=== PATIENT | male | born 1955 | race Hispanic/Latino ===

== ENCOUNTER 2021-06-26 05:37 | Emergency (ER) | payer OTHER, MEDICARE ==
[2021-06-26 06:10] VITALS: BP 126/85
--- NOTE | 2021-06-26 06:58 | XRay Report ---
CHEST 2 VIEWS INDICATION / CLINICAL INFORMATION: CHEST PAIN W/ SOB/WEAKNESS. COMPARISON: None available. FINDINGS: SUPPORT DEVICES: None. HEART / MEDIASTINUM: The heart is mildly enlarged with a left ventricular configuration. There is pro minence of the central pulmonary vessels. LUNGS / PLEURA: Mild diffuse interstitial lung disease is present with slight thickening of the fissu res. No focal consolidation or effusion. No pneumothorax. 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 IMPRESSION: Mild congestive heart failure. Signer Name: Dominguez Green MD Signed: 06/26/2021 6:53 AM Workstation Name: [id number]
[2021-06-26] MEDS ORDERED: SODIUM CHLORIDE 0.9% 1000 ML 1,000 ML IV ONE (07:00)
[2021-06-26 07:10] LABS: Basophils # (Auto) 0.1 K/mm3 (0.0-0.1); Basophils % (Auto) 2.5 % (0.0-1.8); Eosinophils # (Auto) 0.2 K/mm3 (0.0-0.4); Eosinophils % (Auto) 3.3 % (0.0-4.3); Hematocrit 45.9 % (35.5-45.6); Hemoglobin 14.9 gm/dl (11.8-15.2); Lymphocytes # (Auto) 0.3 K/mm3 (1.2-5.4); Lymphocytes % (Auto) 6.2 % (13.4-35.0); Mean Corpuscular HGB Conc 33 % (32-34); Mean Corpuscular Volume 91 fl (84-94); Monocytes # (Auto) 0.4 K/mm3 (0.0-0.8); Monocytes % (Auto) 8.2 % (0.0-7.3); Platelet Count 206 K/mm3 (140-440); Red Blood Count 5.05 M/mm3 (3.65-5.03); Red Cell Distribution Width 15.5 % (13.2-15.2)
[2021-06-26 07:19] LABS: INR 1.14 (0.87-1.13)
--- NOTE | 2021-06-26 07:24 | Emergency Department Report ---
ED Shortness of Breath HPI - General Chief Complaint: Chest Pain Stated Complaint: HIGH BLOOD SUGAR Time Seen by Provider: 06/26/21 06:40 Source: patient Mode of arrival: Ambulatory Limitations: No Limitations - History of Present Illness Initial Comments: 66-year-old male with a past medical history of throat cancer [id number] treated with radiation presents to the hospital with complaints of lightheaded episodes x2 days. Patient had a mild lightheaded episode yesterday. What concerned him was today while taking out the trash he felt like he was going to pass out. Patient complaining of progressive worsening shortness of breath since 2018. He feels that since he received his second Covid shot in December he has had progressively worsening severe sinus congestion and sinus drainage making it difficult for him to breathe and sleep. Drainage is clear for the most part occasionally green-tinged. Patient is using [id number] decongestions. Subjective intermittent fevers reported. Positive cough reported. Patient complains of intermittent left-sided chest pain for years that is described as aching and occurs on different parts of the left chest adjacent to the sternum. Patient reports good p.o. intake without nausea, vomiting, diarrhea, melena, or hematochezia. - Related Data Previous Rx's Medication Instructions Recorded Last Taken Type Albuterol Sulfate [Proventil Hfa] 6.7 gm IH Q4HR PRN #1 hfa.aer.ad 06/26/21 Unknown Rx Amoxicillin/K Clav Tab [Augmentin 1 tab PO Q12HR #20 tab 06/26/21 Unknown Rx 875 mg] Apixaban [Eliquis starter pack] 5 mg PO BID 30 Days tab.ds.pk 06/26/21 Unknown Rx Pseudoephedrine ER [Sudafed 12 Hr] 120 mg PO BID PRN #20 tablet.er 06/26/21 Unknown Rx Allergies Allergy/AdvReac Type Severity Reaction Status Date / Time No Known Allergies Allergy Unverified 06/26/21 06:03 ED Review of Systems ROS: Stated complaint: HIGH BLOOD SUGAR Other details as noted in HPI Comment: All other systems reviewed and negative ED Past Medical Hx - Past Medical History Previous Medical History?: Yes Hx Congestive Heart Failure: Yes Hx of Cancer: Yes (THROAT [id number] WITH RADIATION) Additional medical history: DRY MOUTH SINCE RADIATION TREATMENT - Surgical History Past Surgical History?: No - Medications Home Medications: Home Medications Medication Instructions Recorded Confirmed Last Taken Type Albuterol Sulfate [Proventil Hfa] 6.7 gm IH Q4HR PRN #1 hfa.aer.ad 06/26/21 Unknown Rx Amoxicillin/K Clav Tab [Augmentin 1 tab PO Q12HR #20 tab 06/26/21 Unknown Rx 875 mg] Apixaban [Eliquis starter pack] 5 mg PO BID 30 Days tab.ds.pk 06/26/21 Unknown Rx Pseudoephedrine ER [Sudafed 12 Hr] 120 mg PO BID PRN #20 tablet.er 06/26/21 Unknown Rx ED Physical Exam - General Limitations: No Limitations - Other Other exam information: General: No acute distress Head: Atraumatic Eyes: normal appearance ENT: Moist mucous membranes, nasal congestion, mild maxillary sinus tenderness Neck: Normal appearance, no midline tenderness Chest: Clear to auscultation bilaterally CV: Regular rate and rhythm Abdomen: Soft, normal bowel sounds, nontender, nondistended, no rebound or guarding Back: Normal inspection Extremity: Normal inspection, full range of motion Neuro: Alert O x 3, no facial asymmetry, speech clear, no gross motor sensory deficit Psych: Appropriate behavior Skin: No rash ED Course Vital Signs 06/26/21 06/26/21 06:08 10:54 Temperature 97.6 F Pulse Rate 99 H 87 Respiratory 20 Rate Blood Pressure 126/85 [Left] O2 Sat by Pulse 99 100 Oximetry - Reevaluation(s) Reevaluation #1: 06/26/21 09:37 Patient does not want to be admitted there for admission canceled. Patient was signed out AGAINST MEDICAL ADVICE. Explained risk of syncope, hypoxia, arrhythmia. Patient does not like hospitals and does not want to stay for his [facility]. He did receive a dose of Lovenox and IV Unasyn prior to leaving. Will be prescribed 1 month supply of Eliquis, antibiotic, and encouraged to follow-up with ENT and PMD. Reevaluation #2: 06/26/21 14:39 I called patient to let them know that I left a copy of their CAT scan results and laboratory results with the charge nurse so that he may take him to his physicians upon follow-up ED Medical Decision Making - Lab Data Result diagrams: 06/26/21 06:46 12/03/21 06:46 Lab Results 06/26/21 06/26/21 06/26/21 Range/Units 06:46 06:46 06:46 WBC 5.1 (4.5-11.0) K/mm3 RBC 5.05 H (3.65-5.03) M/mm3 Hgb 14.9 (11.8-15.2) gm/dl Hct 45.9 H (35.5-45.6) % MCV 91 (84-94) fl MCH 30 (28-32) pg MCHC 33 (32-34) % RDW 15.5 H (13.2-15.2) % Plt Count 206 (140-440) K/mm3 Lymph % (Auto) 6.2 L (13.4-35.0) % [place] % (Auto) 8.2 H (0.0-7.3) % Eos % (Auto) 3.3 (0.0-4.3) % Baso % (Auto) 2.5 H (0.0-1.8) % Lymph # (Auto) 0.3 L (1.2-5.4) K/mm3 [place] # (Auto) 0.4 (0.0-0.8) K/mm3 Eos # (Auto) 0.2 (0.0-0.4) K/mm3 Baso # (Auto) 0.1 (0.0-0.1) K/mm3 Seg Neutrophils % 79.8 H (40.0-70.0) % Seg Neutrophils # 4.1 (1.8-7.7) K/mm3 PT 15.8 H (12.2-14.9) Sec. INR 1.14 H (0.87-1.13) D-Dimer 1502.31 H (0-234) ng/mlDDU Sodium 134 L (137-145) mmol/L Potassium 4.8 (3.6-5.0) mmol/L Chloride 95.0 L (98-107) mmol/L Carbon Dioxide 27 (22-30) mmol/L Anion Gap 17 mmol/L BUN 29 H (9-20) mg/dL Creatinine 1.5 H (0.8-1.3) mg/dL Estimated GFR 47 ml/min BUN/Creatinine Ratio 19 % Glucose 125 H (75-100) mg/dL Calcium 9.4 (8.4-10.2) mg/dL Magnesium 2.10 (1.7-2.3) mg/dL Total Bilirubin 0.60 (0.1-1.2) mg/dL AST 18 (5-40) units/L ALT 27 (7-56) units/L Alkaline Phosphatase 89 (35-129) units/L Troponin T < 0.010 (0.00-0.029) ng/mL Total Protein 6.2 L (6.3-8.2) g/dL Albumin 3.9 (3.9-5) g/dL Albumin/Globulin Ratio 1.7 % - EKG Data -: EKG Interpreted by Nh EKG shows normal: sinus rhythm - Radiology Data Radiology results: report reviewed CHEST 2 VIEWS INDICATION / CLINICAL INFORMATION: CHEST PAIN W/ SOB/WEAKNESS. COMPARISON: None available. FINDINGS: SUPPORT DEVICES: None. HEART / MEDIASTINUM: The heart is mildly enlarged with a left ventricular configuration. There is prominence of the central pulmonary vessels. LUNGS / PLEURA: Mild diffuse interstitial lung disease is present with slight thickening of the fissures. No focal consolidation or effusion. No pneumothorax. 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 IMPRESSION: Mild congestive heart failure. CT SINUSES WITHOUT CONTRAST INDICATION / CLINICAL INFORMATION: 66 years Male; sinus pain and drainage for one month which is worsening. TECHNIQUE: Thin cut axial images obtained to the paranasal sinuses. Coronal and/or sagittal recons performed. All CT scans at this location are performed using CT dose reduction for ALARA by means of automated exposure control.. COMPARISON: None available. FINDINGS: FRONTAL sinuses: The frontal sinuses are clear and the frontal nasal passageways are patent. MAXILLARY sinuses: The right maxillary sinus is clear. There is moderate fluid layering posteriorly in the left maxillary sinus. The ostiomeatal complexes appear patent but narrowed bilaterally. ETHMOIDS: There is moderate mucosal thickening or fluid in the ethmoid air cells. Partial opacification anteriorly. SPHENOID sinuses: The sphenoid sinuses are clear and the sphenoethmoidal recesses are patent. MASTOIDS: Mastoid air cells are clear, as are the middle ear cavities. NASAL SEPTUM: The nasal septum deviates to the right side by 5-6 mm. There is focal discontinuity of the septum anteriorly and posteriorly which may represent acute or chronic fracture. NASAL TURBINATES: Mild cauliflower deformity is identified suggesting allergic rhinitis. ADDITIONAL FINDINGS: Poor dentition. There is periapical lucency surrounding the tooth roots of the most posterior left mandibular molar. This could represent a developing periapical tooth abscess. Most of the teeth are absent. IMPRESSION: Fluid level in the left maxillary sinus which could represent acute sinusitis. Mild chronic mucosal thickening in the ethmoid sinuses. Septal deviation with possible previous trauma, see above. Poor dentition as described. CTA CHEST WITH CONTRAST INDICATION : sob, near syncope OMNI 350 100 ML. TECHNIQUE: Axial imaging performed through the chest, with contrast bolus timing set to maximize opacification of the pulmonary arteries. Sagittal and coronal reformatted images. 3-plane MIP reformatted images were obtained. All CT scans at this location are performed using CT dose reduction for ALARA by means of automated exposure control. Omnipaque 350 100 mL of intravenous contrast administered. COMPARISON: Chest x-ray performed the same day FINDINGS: Bolus: Contrast bolus timing is adequate. PTE: A few suspicious pulmonary arterial filling defects are identified on the left side. Focal filling defect is identified in the distal main left pulmonary artery on image 63, series 2. There is nonopacification of the distal arterial branches leading to the posterior left lower lobe which is best demonstrated on axial image 84. No emboli are identified on the right side. Mediastinum: There is mild to moderate cardiomegaly. No pericardial effusion. No evidence for right heart strain. Mild atherosclerotic calcifications are noted in the aorta. No aneurysm. There are 2 mildly enlarged left AP window lymph nodes measuring up to 1.4 cm in short axis. Lungs: Moderate to severe centrilobular and paraseptal emphysematous changes are present. Early fibrotic changes are suggested in the posterior lower lobes. There is mild vascular congestion. No evidence for acute infiltrate, pleural effusion or pneumothorax. Bones: Degenerative changes in the spine with nothing acute. Upper abdomen: Limited imaging of the upper abdomen shows nothing acute. IMPRESSION: Positive for small pulmonary emboli in the left lung as described above. Mild cardiomegaly and pulmonary venous congestion but no CHF. Advanced emphysematous changes. - Medical Decision Making 66-year-old male presents to the hospital with aggressive worsening shortness of breath, persistent sinus pain and drainage, lightheadedness with near syncopal episode for the past 2 days, and intermittent chronic chest pain. ED work-up reveals diagnosis of acute sinusitis treated with Unasyn, mild dehydration treated with normal saline, pulmonary emboli to the lungs Lovenox provided. Patient also appears to have emphysema based on CT chest results. No active wheezing or respiratory distress in the ED. EKG suggestive of LVH with repull abnormality with no reported history of hypertension. Patient will be admitted to the hospitalist service for further treatment Critical Care Time: No Critical care attestation.: If time is entered above; I have spent that time in minutes in the direct care of this critically ill patient, excluding procedure time. ED Disposition Clinical Impression: Near syncope, Pulmonary embolism, History of throat cancer, Renal insufficiency, mild, Dehydration, Acute maxillary sinusitis, Emphysema lung Disposition: 07 LEFT AGAINST MEDICAL ADVICE Is pt being admited?: No Condition: Stable Instructions: Chronic Obstructive Pulmonary Disease, Sinusitis, Adult, [id number], How to Use a Metered Dose Inhaler, Dehydration, Adult, [id number], Pulmonary Embolism, How to Perform a Sinus Rinse, Chronic Obstructive Pulmonary Disease (ED) Additional Instructions: Admission was recommended given your diagnoses you have decided to sign out AGAINST MEDICAL ADVICE. Take the medication as prescribed. Start the Eliquis and antibiotic tonight. Follow-up with your doctor or doctor/clinic provided. Please return if symptoms worsen as indicated by your discharge instructions. Prescriptions: Amoxicillin/K Clav Tab [Augmentin 875 mg] 1 tab PO Q12HR #20 tab Apixaban [Eliquis starter pack] 5 mg PO BID 30 Days tab.ds.pk Albuterol Sulfate [Proventil Hfa] 6.7 gm IH Q4HR PRN #1 hfa.aer.ad PRN Reason: Wheezing Pseudoephedrine ER [Sudafed 12 Hr] 120 mg PO BID PRN #20 tablet.er PRN Reason: Congestion Referrals: GAURI PELAYO MD [Staff Physician] - 3-5 Days (Primary care doctor) KATHLEEN BARNES MD [Staff Physician] - 3-5 Days (ENT doctor) ANJUM BUCKLEY MD [Referring] - 3-5 Days (ENT doctor) CLOVER MCLAUGHLIN MD [Primary Care Provider] - 3-5 Days JASON HOWELL MD [Staff Physician] - 3-5 Days (C[employer] Layer/lung doctor) Forms: AMA Form Time of Disposition: 08:58 (Andrea Espinoza)
[2021-06-26 07:29] LABS: Alanine Aminotransferase 27 units/L (7-56); Albumin 3.9 g/dL (3.9-5); BUN/Creatinine Ratio 19; Blood Urea Nitrogen 29 mg/dL (9-20); Calcium 9.4 mg/dL (8.4-10.2); Hemolysis Index 9
[2021-06-26] MEDS ORDERED: ENOXAPARIN 100 MG/1 ML INJ SUB-Q ONE (08:44)
--- NOTE | 2021-06-26 08:48 | Cat Scan Report ---
CT SINUSES WITHOUT CONTRAST INDICATION / CLINICAL INFORMATION: 66 years Male; sinus pain and drainage for one month which is worsening. TECHNIQUE: Thin cut axial images obtained to the paranasal sinuses. Coronal and/or sagittal recons pe rformed. All CT scans at this location are performed using CT dose reduction for ALARA by means of a utomated exposure control.. COMPARISON: None available. FINDINGS: FRONTAL sinuses: The frontal sinuses are clear and the frontal nasal passageways are patent. MAXILLARY sinuses: The right maxillary sinus is clear. There is moderate fluid layering posteriorly i n the left maxillary sinus. The ostiomeatal complexes appear patent but narrowed bilaterally. ETHMOIDS: There is moderate mucosal thickening or fluid in the ethmoid air cells. Partial opacificati on anteriorly. SPHENOID sinuses: The sphenoid sinuses are clear and the sphenoethmoidal recesses are patent. MASTOIDS: Mastoid air cells are clear, as are the middle ear cavities. NASAL SEPTUM: The nasal septum deviates to the right side by 5-6 mm. There is focal discontinuity of the septum anteriorly and posteriorly which may represent acute or chronic fracture. NASAL TURBINATES: Mild cauliflower deformity is identified suggesting allergic rhinitis. ADDITIONAL FINDINGS: Poor dentition. There is periapical lucency surrounding the tooth roots of the m ost posterior left mandibular molar. This could represent a developing periapical tooth abscess. Most of the teeth are absent. IMPRESSION: Fluid level in the left maxillary sinus which could represent acute sinusitis. Mild chronic mucosal thickening in the ethmoid sinuses. Septal deviation with possible previous trauma, see above. Poor dentition as described. CTA CHEST WITH CONTRAST INDICATION : sob, near syncope OMNI 350 100 ML. TECHNIQUE: Axial imaging performed through the chest, with contrast bolus timing set to maximize opa cification of the pulmonary arteries. Sagittal and coronal reformatted images. 3-plane MIP reformatte d images were obtained. All CT scans at this location are performed using CT dose reduction for ALAR A by means of automated exposure control. Omnipaque 350 100 mL of intravenous contrast administered. COMPARISON: Chest x-ray performed the same day FINDINGS: Bolus: Contrast bolus timing is adequate. PTE: A few suspicious pulmonary arterial filling defects are identified on the left side. Focal fill ing defect is identified in the distal main left pulmonary artery on image 63, series 2. There is non opacification of the distal arterial branches leading to the posterior left lower lobe which is best demonstrated on axial image 84. No emboli are identified on the right side. Mediastinum: There is mild to moderate cardiomegaly. No pericardial effusion. No evidence for right heart strain. Mild atherosclerotic calcifications are noted in the aorta. No aneurysm. There are 2 mi ldly enlarged left AP window lymph nodes measuring up to 1.4 cm in short axis. Lungs: Moderate to severe centrilobular and paraseptal emphysematous changes are present. Early fibr otic changes are suggested in the posterior lower lobes. There is mild vascular congestion. No eviden ce for acute infiltrate, pleural effusion or pneumothorax. Bones: Degenerative changes in the spine with nothing acute. Upper abdomen: Limited imaging of the upper abdomen shows nothing acute. IMPRESSION: Positive for small pulmonary emboli in the left lung as described above. Mild cardiomegaly and pulmonary venous congestion but no CHF. Advanced emphysematous changes. CRITICAL RESULT: Time of Discovery (NON LICENSED NUCLEAR PLANT OPERATOR/CDT): 0735 hours Time of Communication (NON LICENSED NUCLEAR PLANT OPERATOR/CDT): 0741 hours Licensed Practitioner Receiving Report: Candy Paul, charge nurse in the ER Read-Back Performed: Yes. Signer Name: Chuck Jameson Jr, MD Signed: 06/26/2021 8:44 AM Workstation Name: [id number]
[2021-06-26] MEDS ORDERED: AMPICILLIN/SULBACTA 3GM/100ML 3 GM/100 ML BAG IV ONE (09:30)
--- NOTE | 2021-06-26 10:38 | Event Note ---
Date: 06/26/21 New admission. D/w ER physician Dr. Dick who states patient leaving against medical advice. Did not evaluate patient in light of my discussion with Dr. Dick.
--- NOTE | 2021-06-26 12:16 | Electrocardiograph Report ---
[facility] Test Date: 2021-06-26 Test Time: 06:28:32 Pat Name: JOE BURGOS Department: Room: [facility] Gender: M Parts Administrator: JASON : 1955 Requested By: BRITTNEE VERDUZCO Order Number: [id number] Reading MD: Russell Galarza Measurements Intervals [place] Rate: 98 P: 82 ND: 182 QRS: -29 QRSD: 121 T: 124 QT: 403 QTc: 513 Interpretive Statements Sinus rhythm Probable left atrial enlargement LVH with secondary repolarization abnormality Anterior ST elevation, probably due to LVH Prolonged QT interval No previous ECG available for comparison Electronically Signed On 06-26-2021 12:16:41 EST by Russell Galarza
--- NOTE | 2021-06-30 12:11 | Treadmill Report ---
DATE OF SERVICE: 06/26/2021 NUCLEAR PERFUSION SCAN REFERRING PHYSICIAN: Hospitalist javier. PROTOCOL: The patient was assessed in postoperative state, given 10 mCi of technetium at rest. The patient had rest imaging. The patient underwent Lexiscan stress test per standard protocol. At peak stress, the patient was given 26 mCi technetium. Shortly thereafter, the patient underwent stress imaging. Raw imaging reveals mild GI artifact, no significant motion effect. SPECT image examined carefully in horizontal long axis, vertical long axis, short axis views. There was a large densely fixed anterior anteroapical defect consistent with prior myocardial infarction. No evidence of reversible ischemia. LV chamber size is mildly dilated with severe global LV hypokinesis, ejection fraction 15-20%. CONCLUSIONS: Abnormal myocardial perfusion scan with a large densely fixed anterior anteroapical defect consistent with prior myocardial infarction. No evidence of reversible ischemia. Moderately dilated LV with severe global left ventricular hypokinesis. TID: [id number] RECEIPT: [id number] DAVID/RADHA
== END 2021-06-26 10:54 | disposition left against medical advice (07) ==
LOC: ED 05:37 → UNDOADMOB 09:00 → 4A 09:00 → ED 10:54
DX: N28.9 Disorder of kidney and ureter, unspecified (principal); J01.00 Acute maxillary sinusitis, unspecified; R55 Syncope and collapse; J43.9 Emphysema, unspecified; Z85.819 Personal history of malignant neoplasm of unspecified site of lip, oral cavity, and pharynx; I26.99 Other pulmonary embolism without acute cor pulmonale; E86.0 Dehydration
CPT/HCPCS: 36415; 70486; 71046; 71275; 80053; 83735; 84484; 85025; 85379; 85610; 93005; 96361; 96365; 96372; 99284; J0295; J1650; J7030; Q9967; Q0162

== ENCOUNTER 2021-07-14 06:13 | Day surgery (SDC) | payer MEDICARE, OTHER ==
[2021-07-14] MEDS ORDERED: ASPIRIN EC 325 MG TAB PO NR (06:56)
[2021-07-14] MEDS ORDERED: SODIUM CHLORIDE 0.9% 500 ML 500 ML IV SCH (07:00)
[2021-07-14 07:23] LABS: Basophils # (Auto) 0.2 K/mm3 (0.0-0.1); Basophils % (Auto) 2.6 % (0.0-1.8); Eosinophils # (Auto) 0.5 K/mm3 (0.0-0.4); Eosinophils % (Auto) 8.3 % (0.0-4.3); Hematocrit 48.9 % (35.5-45.6); Hemoglobin 15.8 gm/dl (11.8-15.2); Lymphocytes # (Auto) 0.3 K/mm3 (1.2-5.4); Lymphocytes % (Auto) 4.4 % (13.4-35.0); Mean Corpuscular HGB Conc 32 % (32-34); Mean Corpuscular Volume 89 fl (84-94); Monocytes # (Auto) 0.4 K/mm3 (0.0-0.8); Monocytes % (Auto) 5.9 % (0.0-7.3); Platelet Count 216 K/mm3 (140-440); Red Blood Count 5.49 M/mm3 (3.65-5.03); Red Cell Distribution Width 15.1 % (13.2-15.2)
[2021-07-14 07:44] LABS: INR 1.03 (0.87-1.13)
[2021-07-14 07:48] LABS: BUN/Creatinine Ratio 26; Blood Urea Nitrogen 29 mg/dL (9-20); Calcium 9.4 mg/dL (8.4-10.2); Hemolysis Index 30
[2021-07-14] MEDS ORDERED: HEPARIN 10,000 UNITS/10 ML VIAL ONE (08:09)
[2021-07-14] MEDS ORDERED: HEPARIN/NS 5000 UNIT/500ML 1,000 ML IR ONE (08:09)
[2021-07-14] MEDS ORDERED: NITROGLYCERIN SYRINGE 0 ML ONE (08:10)
[2021-07-14] MEDS ORDERED: PHENYLEPHRINE/NS 1,000 MCG/10 ML SYRINGE (OR USE) IV ONE (08:34)
[2021-07-14] MEDS ORDERED: EPINEPHrine 1 MG/10 ML SYRINGE ONE (08:34)
[2021-07-14] MEDS ORDERED: LIDOCAINE PF 100 MG/5 ML (CARDIAC SYRINGE) IV ONE (08:34)
[2021-07-14] MEDS ORDERED: ATROPINE 0.1% (1 MG/10 ML) CARDIAC SYRINGE ONE (08:34)
[2021-07-14] MEDS: MIDAZOLAM 2 MG/2 ML INJ ONE ×2 (09:25→09:27)
[2021-07-14] MEDS: fentaNYL 100 MCG/2 ML INJ ONE ×2 (09:25→09:27)
[2021-07-14] MEDS: LIDOCAINE (2%) 20 MG/1 ML VIAL 20 ML MDV INFILTRATI ONE ×2 (09:28→09:31)
[2021-07-14] MEDS: VERAPAMIL 5 MG/2 ML INJ ONE ×2 (09:28→09:32)
--- NOTE | 2021-07-14 10:17 | Cardiac Catherization Report ---
DATE OF SERVICE: 07/14/2021 INDICATIONS: The patient is a 66-year-old gentleman with history of congestive heart failure, diagnosed to have ischemic cardiomyopathy, history of pulmonary thromboembolism, was noted to have abnormal stress nuclear imaging. Echocardiogram showed ejection fraction of 10-15% with global hypokinesis. Pharmacological stress testing showed large densely fixed anterior apical defect consistent with prior myocardial infarction. No evidence of reversible ischemia. Because of his low ejection fraction and the above findings, the patient was scheduled for cardiac catheterization for definitive diagnosis and treatment. The patient is aware of the procedure, potential complications and alternatives of therapy available. DESCRIPTION OF PROCEDURE: The patient was brought to the catheterization laboratory in a fasting condition. The patient was evaluated for moderate sedation and was felt to be appropriate candidate for moderate sedation. Received IV Versed and fentanyl. Subsequently, patient was prepared in standard fashion. Local anesthesia was given in the right wrist area and right radial artery was used for access. Right radial artery access was obtained with a 21-gauge arterial needle. Subsequently, 5-[place] slender sheath was introduced. A 6-[place] multipurpose catheter was used to obtain the angiograms of the left ventricle done in the JUNE projection followed by angiograms of the left coronary artery in multiple views and angiograms of the right coronary artery in multiple views. At the end of the procedure, catheter and sheath were removed and good hemostasis was achieved with application of radial band. The patient tolerated the procedure well. No untoward complications were noted. Following findings were noted. FINDINGS: 1. Hemodynamics: Opening aortic pressure 110/57. Left ventricular pressure 110/22. No gradient across the aortic valve. Estimated ejection fraction 10-15%. 2. Left ventriculogram done in JUNE projection showed moderately dilated left ventricle with diffuse hypokinesis. Ejection fraction was felt to be around 10-15%. End-diastolic pressure is 22 mmHg. 3. Left coronary artery arises normally from left coronary cusp. The left main shows mild smooth 30% mid lesion. Circumflex artery shows minimal irregularities. However, LAD is totally occluded at the ostium. Filling late on LCA injection and also filling on RCA injection. Right coronary artery, dominant vessel arises normally from right coronary cusp. There is a proximal 40-50% smooth eccentric lesion. Rest of the RCA without significant disease. Recent collaterals were noted to the distal LAD and RCA injection. FINAL IMPRESSION: 1. Severe left ventricular dysfunction with moderate to severely dilated left ventricle with severe diffuse hypokinesis, ejection fraction 10-15%. 2. Occluded left anterior descending with filling retrogradely on LCA and RCA injection. Circumflex artery without significant disease. Right coronary artery dominant vessel, showing moderate nonobstructive disease at this point. Considering above findings with no reversible ischemia, medical therapy will be continued. However, consideration should be given for viability studies and if there is evidence of viability in the anterior wall, revascularization of the anterior wall may be considered. The patient tolerated the procedure well. No untoward complications were noted. The patient was transferred to the room in stable condition. Findings were explained to the patient and . They understand. It is to be noted the patient was given IV sedation starting at 9:25 a.m. and continuously monitored with pulse oximetry and EKG monitoring and hemodynamic monitoring. The patient's IV sedation and monitoring ended at 9:37 a.m. The patient at the end of the procedure is communicating normally and breathing normally with no focal deficits. TID: [id number] RECEIPT: [id number] AVIS/KIERA
--- NOTE | 2021-07-14 12:29 | Short Stay Summary ---
Short Stay Documentation Date of service: 07/14/21 - History H&P: obtained from office - Allergies and Medications Current Medications: Allergies No Known Allergies Allergy (Verified 06/29/21 10:19) Home Medications Medication Instructions Recorded Confirmed Last Taken Type Albuterol Sulfate [Proventil Hfa] 6.7 gm IH Q4HR PRN #1 hfa.aer.ad 06/26/21 07/14/21 1 Day Ago Rx ~06/27/21 Amoxicillin/K Clav Tab [Augmentin 1 tab PO Q12HR #20 tab 06/26/21 07/14/21 07/13/21 Rx 875MG TAB] 2 TABS Ascorbic Acid [Vitamin C] 1,000 mg PO QDAY 06/29/21 07/14/21 3 Days Ago History ~06/26/21 Ibuprofen [Ibu-200] 200 mg PO PRN PRN 06/29/21 07/14/21 2 Days Ago History ~06/27/21 Apixaban [Eliquis starter pack] 5 mg PO BID 30 Days tab.ds.pk 07/01/21 07/14/21 07/11/21 Rx 2 TABS Aspirin [Aspirin BABY CHEW TAB] 81 mg PO QDAY #30 tab.chew 07/01/21 07/14/21 07/14/21 Rx 0745 AtorvaSTATin [Lipitor] 40 mg PO QHS #30 tablet 07/01/21 07/14/21 07/13/21 Rx 1 TAAB Furosemide [Lasix TAB] 40 mg PO BID #60 tablet 07/01/21 07/14/21 07/13/21 Rx 2 TABS Nicotine [Habitrol] 7 mg TD QDAY #30 patch 07/01/21 07/14/21 07/11/21 Rx 1 PATCH Pantoprazole [Protonix TAB] 40 mg PO QDAY #30 tablet 07/01/21 07/14/21 07/13/21 Rx 1 TAB carvediloL [Coreg] 6.25 mg PO BID #60 tablet 07/01/21 07/14/21 07/13/21 Rx 2 TABS lisinopriL [Zestril TAB] 2.5 mg PO QDAY #30 tablet 07/01/21 07/14/21 07/13/21 Rx 2.5 MG Active Medications Sodium Chloride (Nacl 0.9% 500 Ml) 500 mls @ 50 mls/hr IV DIRECT ADRIAN Stop: 07/14/21 16:59 Last Admin: 07/14/21 09:00 Dose: 50 mls/hr Documented by: - Physical exam Integumentary: other (dressing, clean dry, and intact. No bleeding or hematoma) - Brief post op/procedure progress note Date of procedure: 07/14/21 Pre-op diagnosis: ischemic cardiomyopathy, decreased EF Post-op diagnosis: other (CAD) Anesthesia: local Estimated blood loss: minimal - Disposition Condition at discharge: Good Disposition: 01 HOME / SELF CARE / HOMELESS Short Stay Discharge Plan Activity: advance as tolerated Diet: low fat, low cholesterol, low salt Wound: keep clean and dry, per your surgeon's advice Additional Instructions: Patient should follow with the primary retail area manager 1 to 2 weeks after discharge. Phone [phone] Follow up with: [facility] [Primary Care Provider] - 7 Days
[2021-07-14 13:30] VITALS: BP 115/65
--- NOTE | 2021-07-14 17:50 | Electrocardiograph Report ---
[facility] Test Date: 2021-07-14 Test Time: 07:49:24 Pat Name: ANTONINA BURGOS Department: Room: Gender: M Head [employer] Professional: SIMEON : 1955 Requested By: GORGE SPEARS Order Number: [id number] Reading MD: Monica Miller Measurements Intervals [place] Rate: 73 P: 74 [place]: 200 QRS: -18 QRSD: 112 T: 183 QT: 448 QTc: 494 Interpretive Statements Sinus rhythm Probable left atrial enlargement Left ventricular hypertrophy Old anterolateral infarct Nonspecific T abnormalities, lateral leads Compared to ECG 06/28/2021 10:10:19 No significant change Electronically Signed On 07-14-2021 17:50:10 EST by Monica Miller
== END 2021-07-14 13:35 | disposition home or self-care (01) ==
LOC: CATHLABREC 06:13
PROVIDERS: ATTEND Internal Medicine
DX: I25.5 Ischemic cardiomyopathy (principal); R06.00 Dyspnea, unspecified; R94.39 Abnormal result of other cardiovascular function study; I50.20 Unspecified systolic (congestive) heart failure; I26.99 Other pulmonary embolism without acute cor pulmonale; F10.11 Alcohol abuse, in remission; Z79.01 Long term (current) use of anticoagulants; Z72.0 Tobacco use; Z79.82 Long term (current) use of aspirin; Z79.899 Other long term (current) drug therapy; Z98.890 Other specified postprocedural states; Z95.810 Presence of automatic (implantable) cardiac defibrillator
CPT/HCPCS: 36415; 80048; 85025; 85610; 85730; 93005; 93458; 99156; C1894; J1644; J2250; J3010; J3490; J7040; J1815; J0171; J0461; J2001; J2370; Q9967